=== PATIENT | female | born 1950 | race Caucasian/White ===

== ENCOUNTER 2020-07-29 01:44 | Emergency (ER) | payer MEDICARE, OTHER ==
[2020-07-29 02:45] VITALS: BMI 35.7
[2020-07-29 03:54] LABS: BASO % 0.7 % (0-2.0); EOS % 5.4 % (0-4.5); HEMATOCRIT 36.9 % (32.4-45.2); HEMOGLOBIN 12.8 GM/dL (10.7-15.3); LYMPH % 10.3 % (8-40); MCH 36.5 pg (25.7-33.7); MCHC 34.7 g/dl (32.0-36.0); MEAN CELL VOLUME 105.1 fl (80-96); MEAN PLT VOLUME 8.4 fl (7.5-11.1); MONO % 5.1 % (3.8-10.2); NEUT % 78.5 % (42.8-82.8); PLATELET COUNT 216 K/MM3 (134-434); RBC 3.51 M/mm3 (3.60-5.2); RDW 12.5 % (11.6-15.6); WHITE BLOOD COUNT 10.9 K/mm3 (4.0-10.0)
[2020-07-29] MEDS ORDERED: FAMOTIDINE 20 MG TABLET PO ONE (04:02)
[2020-07-29] MEDS ORDERED: MAG HYDROX/AL HYDROX/SIMETH 30 ML UNIT-DOSE CUP PO ONE (04:02)
[2020-07-29 04:11] LABS: POTASSIUM 3.4 mmol/L (3.5-5.1)
[2020-07-29] MEDS ORDERED: MAG HYDROX/AL HYDROX/SIMETH 30 ML UNIT-DOSE CUP ONE (04:13)
[2020-07-29] MEDS ORDERED: FAMOTIDINE 20 MG TABLET ONE (04:13)
[2020-07-29 04:14] LABS: ALBUMIN 3.2 g/dl (3.4-5.0); BLOOD UREA NITROGEN 11.4 mg/dL (7-18); CALCIUM 8.5 mg/dL (8.5-10.1)
[2020-07-29 04:17] LABS: CREATININE 0.9 mg/dL (0.55-1.3)
[2020-07-29 04:19] LABS: BILIRUBIN,TOTAL 0.5 mg/dL (0.2-1); TOT PROT 7.1 g/dl (6.4-8.2)
[2020-07-29] MEDS ORDERED: ACETAMINOPHEN 325 MG TABLET (FP) PO ONE (04:30)
[2020-07-29] MEDS ORDERED: ACETAMINOPHEN 325 MG TABLET (FP) ONE (04:47)
[2020-07-29] MEDS ORDERED: POTASSIUM CHLORIDE TABS 20 MEQ TABLET.ER (FP) PO ONE ×2 (04:55→04:57)
[2020-07-29 05:35] LABS: MACROCYTOSIS 2+
[2020-07-29 06:52] LABS: INR 1.1 (0.83-1.09); PROTHROMBIN TIME (PATIENT) 13.5 SEC (9.7-13.0)
[2020-07-29 06:54] LABS: ACTIVATED PTT 22.5 SECONDS (25.2-36.5)
[2020-07-29 07:20] VITALS: BP 138/69; PULSE 85; TEMP 98.1
[2020-07-29 08:24] LABS: PH,URINE 5.5 (5.0-8.0); URINE APPEARANCE CLEAR; URINE BILIRUBIN NEGATIVE (NEGATIVE); URINE COLOR YELLOW; URINE GLUCOSE (UA) NEGATIVE (NEGATIVE); URINE KETONE TRACE (NEGATIVE); URINE LEUK ESTERASE NEGATIVE (NEGATIVE); URINE NITRITE NEGATIVE (NEGATIVE); URINE PROTEIN NEGATIVE (NEGATIVE); URINE UROBILINOGEN 0.2 mg/dL (0.2-1.0)
== END 2020-07-29 07:20 | disposition home or self-care (01) ==
LOC: JER 01:44
DX: K51.90 Ulcerative colitis, unspecified, without complications (principal)
CPT/HCPCS: 36415; 74177-TC; 80053; 81003; 83605; 83690; 85025; 85610; 85730; 86850; 86900; 86901; 87086; 93005; 93010; 99285-25; Q9967